=== PATIENT | female | born 1990 | race Caucasian/White ===

== ENCOUNTER 2022-05-22 00:07 | Emergency (ER) | payer OTHER ==
[~2022-05-22] VITALS: Ht 162.5 cm; Wt 72.6 kg
[~2022-05-22 00:07] MED LIST: ALAVERT10 MG PO; AMOXICILLIN500 MG PO; CLARITIN10 MG PO; HYDROCODONE BIT1 T11 PO; MOTRIN800 MG PO; NKHM; OMNICEF300 MG PO; REGLAN10 MG PO; VICODIN 500 MG-1 TAB PO; ZANTAC150 MG PO; ZOFRAN4 MG PO
[2022-05-22 00:31] LABS: BASO # 0.1 10*3/uL (0.0-0.1); BASO % 0.6 % (0.0-1.0); EOS # 0.3 10*3/uL (0.0-0.4); EOS % 2.6 % (1.0-4.0); HEMATOCRIT 42.8 % (37.0-47.0); LYMPH # 2.2 10*3/uL (1.3-4.4); LYMPH % 19.5 % (27.0-41.0); MEAN CELL VOLUME 86.8 fl (81.0-99.0); MEAN CORPUSCULAR HGB 28.6 pg (27.0-31.0); MEAN CORPUSCULAR HGB CONC 32.9 g/dl (33.0-37.0); MEAN PLATELET VOLUME 9.8 fl (9.6-12.3); MONO # 0.7 10*3/uL (0.1-1.0); MONO % 6.4 % (3.0-9.0); NEUT # 8.1 10*3/uL (2.3-7.9); NEUT % 70.6 % (47.0-73.0); PLATELET COUNT AUTOMATED 317 10*3/uL (130-400); RED BLOOD COUNT 4.93 10*6/uL (4.10-5.10); RED CELL DISTRI WIDTH 12.8 % (0-14.5); WHITE BLOOD COUNT 11.5 10*3/uL (4.8-10.8)
[2022-05-22 00:53] LABS: ALKALINE PHOSPHATASE 77 U/L (46-116); BUN 6 mg/dl (9-23); CHLORIDE 106 mmol/L (98-107); CREATININE 0.67 mg/dL (0.55-1.02); LIPASE 37 U/L (12-53); POTASSIUM 3.9 mmol/L (3.4-5.1); SGPT/ALT 15 U/L (10-49); SODIUM 139 mmol/L (136-145); TOTAL PROTEIN 6.9 gm/dL (6.0-8.0)
[2022-05-22 01:04] LABS: BILIRUBIN Negative (Negative); BLOOD Negative (Negative); CLARITY Cloudy (Clear); COLOR Yellow (Yellow); GLUCOSE Negative (Negative); KETONE Trace (Negative); LEUKO ESTERASE 3+ (Negative); NITRITE Negative (Negative); PH 5.5 (4.5-8.0)
[2022-05-22 01:28] LABS: WBC 41-50 wbc/hpf (0-5)
[2022-05-22 01:29] LABS: BACTERIA 2+; EPITHELIAL CELLS 31-40
[2022-05-22] MEDS ORDERED: Ondansetron4 MG PO (02:19)
== END 2022-05-22 02:23 | disposition home or self-care (01) ==
LOC: ED 00:07
PROVIDERS: Emergency Medicine
DX: K52.9 Noninfective gastroenteritis and colitis, unspecified (principal); N30.00 Acute cystitis without hematuria; Z88.5 Allergy status to narcotic agent